=== PATIENT | male | born 1980 | race Caucasian/White ===

== ENCOUNTER 2017-11-22 10:53 | Emergency (ER) | payer OTHER ==
[~2017-11-22] VITALS: Ht 170.2 cm; Wt 77.6 kg
[~2017-11-22 10:53] MED LIST: IBUPROFEN 800800 MG PO; MEDROLDOSEPACK PO; NOHOMEMEDICATIONS
[2017-11-22 11:57] LABS: INFLUENZA A ANTIGEN None Detected (None Detect)
[2017-11-22] MEDS ORDERED: TESSALON PERLE100 MG PO (12:19)
[2017-11-22] MEDS ORDERED: NAPROSYN500 MG PO (12:19)
[2017-11-22] MEDS ORDERED: VENTOLIN HFA 1818 GM INH (12:19)
[2017-11-22 12:35] VITALS: BP 136/85
== END 2017-11-22 12:36 | disposition home or self-care (01) ==
LOC: M.ERS 10:53
PROVIDERS: Family Medicine
DX: J10.1 Influenza due to other identified influenza virus with other respiratory manifestations (principal); F17.200 Nicotine dependence, unspecified, uncomplicated; F10.99 Alcohol use, unspecified with unspecified alcohol-induced disorder